=== PATIENT | male | born 1955 | race Caucasian/White ===

== ENCOUNTER 2017-09-23 13:28 | Observation (INO) | payer MEDICARE ==
[~2017-09-23] VITALS: Ht 180.3 cm; Wt 62.3 kg
[2017-09-23] MEDS ORDERED: LEVSOD150 PO (13:41)
[2017-09-23] MEDS ORDERED: CARV6.25 PO (13:42)
[2017-09-23] MEDS ORDERED: FENT50TP TOP (13:42)
[2017-09-23 14:27] LABS: BASOPHILS ABSOLUTE AUTO 0.02 K/mm3 (0.00-0.23); BASOPHILS PERCENT AUTO 0 % (0-2); EOSINOPHILS PERCENT AUTO 0 % (0-6); Hematocrit 48.2 % (37.0-53.0); IMMATURE GRAN ABSOLUTE AUTO 0.03 K/mm3 (0.00-0.10); IMMATURE GRAN PERCENT AUTO 0 % (0-1); LYMPHOCYTES ABSOLUTE AUTO 1.05 K/mm3 (0.84-5.20); LYMPHOCYTES PERCENT AUTO 14 % (21-46); MONOCYTES ABSOLUTE AUTO 0.27 K/mm3 (0.16-1.47); MONOCYTES PERCENT AUTO 4 % (4-13); Mean Corpuscular HGB 29.7 pg (26.0-34.0); Mean Corpuscular HGB Conc 33.2 g/dL (31.5-36.5); Mean Corpuscular Volume 89 fL (80-100); Mean Platelet Volume 9.6 fL (9.1-12.4); NEUTROPHILS ABSOLUTE AUTO 5.98 K/mm3 (1.96-9.15); NEUTROPHILS PERCENT AUTO 81 % (41-73); Platelet Count 376 K/mm3 (150-400); RDW Coefficient Variation 13.1 % (11.7-14.2); Red Blood Cell Count 5.39 M/mm3 (4.30-5.90); White Blood Cell Count 7.35 K/mm3 (4.00-11.30)
[2017-09-23 15:43] LABS: Alanine Aminotransfer (ALT/SGP 15 U/L (12-78); Albumin, Blood 3.7 g/dL (3.4-5.0); Alk Phos 77 U/L (50-136); Anion Gap 11 mmol/L (6-16); Aspartate Aminotrans (AST/SGOT 13 U/L (12-37); Bilirubin, Total 0.6 mg/dL (0.1-1.0); Blood Urea Nitrogen 29 mg/dL (8-24); Bun/Creatinine Ratio 34.7 (12.0-20.0); CO2, Blood 24 mmol/L (21-32); Calcium, Blood 9.3 mg/dL (8.5-10.1); Chloride, Blood 103 mmol/L (98-108); Creatinine, Blood 0.84 mg/dL (0.60-1.20); Globulin, Blood 3.6 g/dL (2.2-4.0); Glomerular Filtration Rate >60 (60-); Glucose, Blood 127 mg/dL (70-99); Potassium, Blood 4.5 mmol/L (3.5-5.5); Sodium, Blood 138 mmol/L (136-145); Total Protein, Blood 7.3 g/dL (6.4-8.2); Troponin I 0.015 ng/mL (0.000-0.040)
[2017-09-23 15:47] LABS: Thyroid Stimulating Hormone 0.012 uIU/mL (0.360-4.800)
[2017-09-23 15:53] LABS: Source, Urine Clean Catch
[2017-09-23 16:04] LABS: Appearance, Urine Clear (Clear); Bilirubin, Urine Neg (Neg); Blood, Urine 1+ (Neg); Color, Urine Yellow (P-Yellow); Glucose Qualitative, Urine Neg (Neg); Ketones, Urine 4+ (Neg); Leukocyte Esterase, Urine Neg (Neg); Nitrite, Urine Neg (Neg); Protein, Urine 2+ (Neg); Urobilinogen, Urine NORM (Normal)
[2017-09-23 16:13] LABS: Bacteria Rare /hpf; Red Blood Cells, Urine 0-2 /hpf (0-2); Squamous Epithelial Cells Not Seen /hpf (Few); White Blood Cells, Urine Not Seen /hpf (0-5)
[2017-09-23 16:20] LABS: U Amphetamine Screen Not Detected; U Barbituate Screen Not Detected; U Benzodiazapine Screen Not Detected; U Buprenorphine Screen Not Detected; U Cannabinoids Screen DETECTED; U Cocaine Screen Not Detected; U Methadone Screen Not Detected; U Methamphetamine Screen Not Detected; U Opiates Screen Not Detected; U Oxycodone Screen DETECTED; U Phencyclidine Screen Not Detected; U Propoxyphene Screen Not Detected
[2017-09-23 17:49] LABS: Free Thyroxine 1.93 ng/dL (0.70-1.60)
[2017-09-23 17:51] LABS: Triiodothyronine, Free 2.16 pg/mL (2.18-3.98)
[2017-09-23] MEDS ORDERED: DULO60 PO ×2 (22:01→22:02)
[2017-09-23] MEDS ORDERED: ABAT250V (22:01)
[2017-09-24 05:05] LABS: BASOPHILS ABSOLUTE AUTO 0.03 K/mm3 (0.00-0.23); BASOPHILS PERCENT AUTO 1 % (0-2); EOSINOPHILS ABSOLUTE AUTO 0.02 K/mm3 (0.00-0.68); EOSINOPHILS PERCENT AUTO 0 % (0-6); Hematocrit 40.2 % (37.0-53.0); Hemoglobin 13.6 g/dL (13.5-17.5); IMMATURE GRAN ABSOLUTE AUTO 0.02 K/mm3 (0.00-0.10); IMMATURE GRAN PERCENT AUTO 0 % (0-1); LYMPHOCYTES ABSOLUTE AUTO 3.14 K/mm3 (0.84-5.20); LYMPHOCYTES PERCENT AUTO 49 % (21-46); MONOCYTES PERCENT AUTO 9 % (4-13); Mean Corpuscular HGB 29.7 pg (26.0-34.0); Mean Corpuscular HGB Conc 33.8 g/dL (31.5-36.5); Mean Corpuscular Volume 88 fL (80-100); Mean Platelet Volume 9.8 fL (9.1-12.4); NEUTROPHILS ABSOLUTE AUTO 2.67 K/mm3 (1.96-9.15); NEUTROPHILS PERCENT AUTO 41 % (41-73); Platelet Count 306 K/mm3 (150-400); RDW Standard Deviation 41.5 fL (35.1-46.3); Red Blood Cell Count 4.58 M/mm3 (4.30-5.90); White Blood Cell Count 6.48 K/mm3 (4.00-11.30)
[2017-09-24 05:35] LABS: Anion Gap 7 mmol/L (6-16); Blood Urea Nitrogen 23 mg/dL (8-24); Bun/Creatinine Ratio 26.9 (12.0-20.0); CO2, Blood 30 mmol/L (21-32); Chloride, Blood 103 mmol/L (98-108); Creatinine, Blood 0.86 mg/dL (0.60-1.20); Glomerular Filtration Rate >60 (60-); Glucose, Blood 94 mg/dL (70-99); Potassium, Blood 3.9 mmol/L (3.5-5.5); Sodium, Blood 140 mmol/L (136-145)
[2017-09-25] MEDS ORDERED: ONDA4ODT MM (10:22)
[2017-09-25] MEDS ORDERED: PROC5 (13:21)
[2018-05-29] MEDS ORDERED: MIRT15 PO (20:36)
[2018-05-29] MEDS ORDERED: LEVSOD100 PO (20:36)
[2018-05-30] MEDS ORDERED: LISI5 PO (15:59)
== END 2017-09-25 16:08 | disposition home or self-care (01) ==
LOC: ER 13:28 → MEDS 13:29 → ENPENDDIS 09-25 08:30 → MEDS 09-25 16:08
PROVIDERS: Emergency Medicine; Internal Medicine
DX: R11.2 Nausea with vomiting, unspecified (principal); I10 Essential (primary) hypertension; E05.90 Thyrotoxicosis, unspecified without thyrotoxic crisis or storm; G20 Parkinson's disease; G89.29 Other chronic pain; M54.5 Low back pain; M32.9 Systemic lupus erythematosus, unspecified; E03.9 Hypothyroidism, unspecified; Z90.49 Acquired absence of other specified parts of digestive tract; Z98.890 Other specified postprocedural states
CPT/HCPCS: 36415; 71046; 74018; 80048; 80053; 81001; 83690; 83735; 84439; 84443; 84481; 84484; 85025; 93005; 93010; 96361; 96372; 96374; 96375; 96376; 99285; C9113; G0378; J0780; J1170; J1200; J1650; J1885; J2405; J2765; J3010; J7120

== ENCOUNTER 2018-03-04 09:50 | Emergency (ER) | payer MEDICARE ==
[~2018-03-04] VITALS: Ht 172.7 cm; Wt 65.8 kg
[~2018-03-04 09:50] MED LIST: ABAT250V; CARV6.25 PO; DULO60 PO; FENT50TP TOP; LEVSOD150 PO; ONDA4ODT MM; PROC5
[2018-03-04 10:38] LABS: BASOPHILS ABSOLUTE AUTO 0.04 K/mm3 (0.00-0.23); BASOPHILS PERCENT AUTO 1 % (0-2); EOSINOPHILS ABSOLUTE AUTO 0.02 K/mm3 (0.00-0.68); EOSINOPHILS PERCENT AUTO 0 % (0-6); Hematocrit 53.3 % (37.0-53.0); IMMATURE GRAN ABSOLUTE AUTO 0.02 K/mm3 (0.00-0.10); IMMATURE GRAN PERCENT AUTO 0 % (0-1); LYMPHOCYTES ABSOLUTE AUTO 1.98 K/mm3 (0.84-5.20); LYMPHOCYTES PERCENT AUTO 32 % (21-46); MONOCYTES ABSOLUTE AUTO 0.38 K/mm3 (0.16-1.47); MONOCYTES PERCENT AUTO 6 % (4-13); Mean Corpuscular HGB 31.1 pg (26.0-34.0); Mean Corpuscular HGB Conc 33.8 g/dL (31.5-36.5); Mean Corpuscular Volume 92 fL (80-100); NEUTROPHILS ABSOLUTE AUTO 3.68 K/mm3 (1.96-9.15); NEUTROPHILS PERCENT AUTO 60 % (41-73); Platelet Count 398 K/mm3 (150-400); RDW Coefficient Variation 14.6 % (11.7-14.2); RDW Standard Deviation 49.6 fL (35.1-46.3); Red Blood Cell Count 5.79 M/mm3 (4.30-5.90); White Blood Cell Count 6.12 K/mm3 (4.00-11.30)
[2018-03-04 10:56] LABS: Alanine Aminotransfer (ALT/SGP 39 U/L (12-78); Albumin, Blood 4.1 g/dL (3.4-5.0); Albumin/Globulin Ratio 1.1 (0.8-1.8); Alk Phos 95 U/L (50-136); Anion Gap 8 mmol/L (6-16); Aspartate Aminotrans (AST/SGOT 20 U/L (12-37); Bilirubin, Total 0.7 mg/dL (0.1-1.0); Blood Urea Nitrogen 23 mg/dL (8-24); Bun/Creatinine Ratio 23.7 (12.0-20.0); CO2, Blood 27 mmol/L (21-32); Calcium, Blood 9.2 mg/dL (8.5-10.1); Chloride, Blood 104 mmol/L (98-108); Creatinine, Blood 0.97 mg/dL (0.60-1.20); Globulin, Blood 3.8 g/dL (2.2-4.0); Glomerular Filtration Rate >60 (60-); Glucose, Blood 109 mg/dL (70-99); Potassium, Blood 3.8 mmol/L (3.5-5.5); Sodium, Blood 139 mmol/L (136-145); Total Protein, Blood 7.9 g/dL (6.4-8.2); Troponin I <0.015 ng/mL (0.000-0.040)
[2018-03-04 11:52] LABS: Source, Urine Clean Catch
[2018-03-04 12:01] LABS: Bilirubin, Urine Neg (Neg); Blood, Urine 1+ (Neg); Glucose Qualitative, Urine Neg (Neg); Ketones, Urine Neg (Neg); Leukocyte Esterase, Urine Neg (Neg); Nitrite, Urine Neg (Neg); Protein, Urine 2+ (Neg); Urobilinogen, Urine NORM (Normal)
[2018-03-04 12:30] LABS: Appearance, Urine Clear (Clear); Color, Urine Yellow (P-Yellow)
[2018-03-04 12:37] LABS: Bacteria Not Seen /hpf; Red Blood Cells, Urine Not Seen /hpf (0-2); Squamous Epithelial Cells Few /hpf (Few); White Blood Cells, Urine Not Seen /hpf (0-5)
== END 2018-03-04 13:17 | disposition home or self-care (01) ==
LOC: ER 09:50
PROVIDERS: Emergency Medicine
DX: R53.82 Chronic fatigue, unspecified (principal); R25.2 Cramp and spasm; F32.9 Major depressive disorder, single episode, unspecified; I10 Essential (primary) hypertension; Z79.899 Other long term (current) drug therapy
CPT/HCPCS: 36415; 71046; 80053; 81001; 83880; 84484; 85025; 93005; 93010; 99284-25

== ENCOUNTER 2019-02-26 08:19 | Observation (INO) | payer MEDICARE ==
[~2019-02-26] VITALS: Ht 180.3 cm; Wt 65.8 kg
[~2019-02-26 08:19] MED LIST changes: +LEVSOD100 PO; +LISI5 PO; +MIRT15 PO
[2019-02-26 09:03] LABS: BASOPHILS ABSOLUTE AUTO 0.04 K/mm3 (0.00-0.23); BASOPHILS PERCENT AUTO 1 % (0-2); EOSINOPHILS ABSOLUTE AUTO 0.04 K/mm3 (0.00-0.68); EOSINOPHILS PERCENT AUTO 1 % (0-6); Hematocrit 52.3 % (37.0-53.0); Hemoglobin 17.5 g/dL (13.5-17.5); IMMATURE GRAN ABSOLUTE AUTO 0.01 K/mm3 (0.00-0.10); IMMATURE GRAN PERCENT AUTO 0 % (0-1); LYMPHOCYTES ABSOLUTE AUTO 1.64 K/mm3 (0.84-5.20); LYMPHOCYTES PERCENT AUTO 30 % (21-46); MONOCYTES ABSOLUTE AUTO 0.38 K/mm3 (0.16-1.47); MONOCYTES PERCENT AUTO 7 % (4-13); Mean Corpuscular HGB 31.8 pg (26.0-34.0); Mean Corpuscular HGB Conc 33.5 g/dL (31.5-36.5); Mean Corpuscular Volume 95 fL (80-100); Mean Platelet Volume 9.2 fL (9.1-12.4); NEUTROPHILS ABSOLUTE AUTO 3.38 K/mm3 (1.96-9.15); NEUTROPHILS PERCENT AUTO 62 % (41-73); Platelet Count 291 K/mm3 (150-400); RDW Coefficient Variation 13.3 % (11.7-14.2); RDW Standard Deviation 47.5 fL (35.1-46.3); White Blood Cell Count 5.49 K/mm3 (4.00-11.30)
[2019-02-26 09:28] LABS: Ethanol (Alcohol), Blood, Med <3 mg/dL; Salicylate 3.2 mg/dL (2.8-20.0)
[2019-02-26 09:31] LABS: U Amphetamine Screen Not Detected; U Barbituate Screen Not Detected; U Benzodiazapine Screen Not Detected; U Buprenorphine Screen Not Detected; U Cannabinoids Screen DETECTED; U Cocaine Screen Not Detected; U Methadone Screen Not Detected; U Methamphetamine Screen Not Detected; U Opiates Screen Not Detected; U Oxycodone Screen Not Detected; U Phencyclidine Screen Not Detected; U Propoxyphene Screen Not Detected
[2019-02-26 09:36] LABS: Alanine Aminotransfer (ALT/SGP 23 U/L (12-78); Albumin, Blood 4.2 g/dL (3.4-5.0); Albumin/Globulin Ratio 1.2 (0.8-1.8); Alk Phos 61 U/L (50-136); Anion Gap 10 mmol/L (6-16); Aspartate Aminotrans (AST/SGOT 15 U/L (12-37); Bilirubin, Total 0.8 mg/dL (0.1-1.0); Blood Urea Nitrogen 24 mg/dL (8-24); Bun/Creatinine Ratio 26.8 (12.0-20.0); CO2, Blood 25 mmol/L (21-32); Calcium, Blood 9.4 mg/dL (8.5-10.1); Chloride, Blood 105 mmol/L (98-108); Globulin, Blood 3.6 g/dL (2.2-4.0); Glomerular Filtration Rate >60 (60-); Glucose, Blood 113 mg/dL (70-99); Potassium, Blood 4.1 mmol/L (3.5-5.5); Sodium, Blood 140 mmol/L (136-145); Total Protein, Blood 7.8 g/dL (6.4-8.2)
[2019-02-26 09:37] LABS: Acetaminophen, Random <2.0 ug/mL (10.0-30.0)
[2019-02-26] MEDS ORDERED: TRAZ100 (12:01)
[2019-02-26] MEDS ORDERED: Fentanyl1 EAC1 TD (12:01)
[2019-02-26] MEDS ORDERED: OXYC10TA19 PO (12:01)
[2019-03-01] MEDS ORDERED: Seroquel Xr50 MG PO (12:16)
[2019-03-01] MEDS ORDERED: BUPR75 PO (14:00)
== END 2019-03-01 14:07 | disposition home or self-care (01) ==
LOC: ER 08:19 → EOR 08:20
PROVIDERS: ADMIT Emergency Medicine
DX: F32.9 Major depressive disorder, single episode, unspecified (principal); Z79.899 Other long term (current) drug therapy
CPT/HCPCS: 36415; 80053; 84443; 85025; 99285; A9270; G0378; G0480; J3486

== ENCOUNTER 2020-04-25 07:54 | Observation (INO) | payer MEDICARE ==
[~2020-04-25] VITALS: Ht 180.3 cm; Wt 75.9 kg
[~2020-04-25 07:54] MED LIST changes: +BUPR75 PO; +EUTHYROX125 MCG PO; +Fentanyl1 EAC1 TD; -LEVSOD100 PO; +OXYC10TA19 PO; +Seroquel Xr50 MG PO; +TRAZ100
[2020-04-25 08:15] LABS: BASOPHILS ABSOLUTE AUTO 0.05 K/mm3 (0.00-0.23); BASOPHILS PERCENT AUTO 1 % (0-2); EOSINOPHILS ABSOLUTE AUTO 0.08 K/mm3 (0.00-0.68); EOSINOPHILS PERCENT AUTO 1 % (0-6); Hematocrit 42.4 % (37.0-53.0); Hemoglobin 14.1 g/dL (13.5-17.5); IMMATURE GRAN ABSOLUTE AUTO 0.04 K/mm3 (0.00-0.10); IMMATURE GRAN PERCENT AUTO 1 % (0-1); LYMPHOCYTES ABSOLUTE AUTO 1.52 K/mm3 (0.84-5.20); LYMPHOCYTES PERCENT AUTO 23 % (21-46); MONOCYTES ABSOLUTE AUTO 0.52 K/mm3 (0.16-1.47); MONOCYTES PERCENT AUTO 8 % (4-13); Mean Corpuscular HGB 31.2 pg (26.0-34.0); Mean Corpuscular HGB Conc 33.3 g/dL (31.5-36.5); Mean Corpuscular Volume 94 fL (80-100); Mean Platelet Volume 9.3 fL (9.1-12.4); NEUTROPHILS ABSOLUTE AUTO 4.45 K/mm3 (1.96-9.15); NEUTROPHILS PERCENT AUTO 67 % (41-73); Platelet Count 309 K/mm3 (150-400); RDW Coefficient Variation 13.5 % (11.7-14.2); RDW Standard Deviation 45.8 fL (35.1-46.3); Red Blood Cell Count 4.52 M/mm3 (4.30-5.90); White Blood Cell Count 6.66 K/mm3 (4.00-11.30)
[2020-04-25 08:40] LABS: Alanine Aminotransfer (ALT/SGP 29 U/L (12-78); Albumin, Blood 3.7 g/dL (3.4-5.0); Albumin/Globulin Ratio 1.1 (0.8-1.8); Alk Phos 61 U/L (50-136); Anion Gap 7 mmol/L (6-16); Aspartate Aminotrans (AST/SGOT 19 U/L (12-37); Bilirubin, Total 0.6 mg/dL (0.1-1.0); Blood Urea Nitrogen 27 mg/dL (8-24); Bun/Creatinine Ratio 25.5 (12.0-20.0); CO2, Blood 24 mmol/L (21-32); Calcium, Blood 8.7 mg/dL (8.5-10.1); Chloride, Blood 109 mmol/L (98-108); Creatinine, Blood 1.06 mg/dL (0.60-1.20); Globulin, Blood 3.4 g/dL (2.2-4.0); Glomerular Filtration Rate >60 (60-); Glucose, Blood 114 mg/dL (70-99); Sodium, Blood 140 mmol/L (136-145); Total Protein, Blood 7.1 g/dL (6.4-8.2); Troponin I <0.015 ng/mL (0.000-0.040)
[2020-04-25 09:02] LABS: Source, Urine Voided
[2020-04-25 09:08] LABS: Bilirubin, Urine Neg (Neg); Blood, Urine 1+ (Neg); Glucose Qualitative, Urine Neg (Neg); Ketones, Urine Neg (Neg); Leukocyte Esterase, Urine Neg (Neg); Nitrite, Urine Neg (Neg); Protein, Urine Neg (Neg); Urobilinogen, Urine NORM (Normal)
[2020-04-25 09:24] LABS: Appearance, Urine Clear (Clear); Color, Urine Yellow (P-Yellow)
[2020-04-25 09:25] LABS: Bacteria Not Seen /hpf; Squamous Epithelial Cells Not Seen /hpf (Few); White Blood Cells, Urine Not Seen /hpf (0-5); Yeast/Fungi Urine Not Seen /hpf
[2020-04-25] MEDS ORDERED: ACET325 PO (15:57)
[2020-04-25] MEDS ORDERED: IBUP200 PO (15:57)
[2020-04-25] MEDS ORDERED: TRIDERM28.4 GM TOP (18:09)
[2020-04-25] MEDS ORDERED: BUPR100 PO (18:09)
[2020-04-25] MEDS ORDERED: DESVENLAFAXINE50 M3 PO (18:10)
[2020-04-25] MEDS ORDERED: QUETIAPINE FUMA50 M1 PO (18:11)
--- NOTE | 2020-04-25 18:27 | NUR ---
SHIFT SUMMARY. 1227 ER ADMISSION FOR CP. PT REPORTED PRESSURE TYPE MIDSTERNAL PAIN 09/20 AT TIME OF ADMISSION, PT DENIED RADIATING TO ARM OR JAW. PT REPORTED CP PRIOR TO ADMISSION 01/20. PT ALSO REPORTED PAIN TO L SHOULDER THAT IS CHRONIC 09/20, WHICH PT REQUESTED IBUPROFEN AND APAP. AT TIME OF ADMINISTION OF APAP AND IBUPROFEN PT REPORTED THAT CP SPONTANEOUSLY STOPPED, PT REPORTED L SHOULDER PAIN IMPROVED WITH ABOVE MEDICATIONS. PT DENIES N/V SINCE ADMISSION, PT DID REPORT NAUSEA AT 0500 THIS AM WHEN HE EXPERIENCED CP AT HOME. GOOD MEAL INTAKE. PT DENIES SOB, LUNGS CLEAR. NO OTHER CHANGES OR CONCERNS.
--- NOTE | 2020-04-25 23:51 | NUR ---
HAS BEEN RESTING QUIETLY WITHOUT VOICED COMPLAINTS. WAS AWAKENED FOR ASSESSMENT, DENIED CHEST PAIN, BUT VOICED SOME SHOULDER PAIN FOR WHICH HE RECEIVED TYLENOL (SHICH HE SAID HE TAKES FOR IT AT HOME). CURRENTLY RESTING QUIETLY WITH CALL LIGHT IN REACH.
--- NOTE | 2020-04-26 02:54 | NUR ---
SHIFT SUMMARY HAS BEEN RESTING QUIETLY WITH FEW INTERRUPTIONS THIS SHIFT. VSS. HAS DENIED CHEST PAIN EACH TIME DURING ROUNDING. CALL LIGHT IN REACH. NO NOTED S/S ACUTE DISTRESS. WILL CONTINUE TO MONITOR.
--- NOTE | 2020-04-26 10:03 | NUR ---
PHYSICIAN NOTIFIED THIS RN CALLED DR. ANDERSON ABOUT PT VOMITING AT APPROXIMATELY 0920 AND OBTAINED ORDERS FOR ZOFRAN PER EMAR. PT DENIED CHEST PAIN AT 0920. AT APPROXIMATELY [id number], PT C/O CHEST PAIN, NOT RADIATING. THIS RN OBTAINED PT VITALS AND DISCUSSED CP WITH DR. GARZA IN ROOM. ORDERS OBTAINED FOR EKG STAT, EKG PRN CHEST PAIN, AND SL NITROGLYCERIN.
--- NOTE | 2020-04-26 18:25 | NUR ---
SHIFT SUMMARY PT IS AOX4. PT HAD ONE EPISODE OF CHEST PAIN AND VOMITING THIS AM AT APPROXIMATELY 0940. SEE "PHYSICIAN NOTIFIED" NOTE. AFTER SL NITRO AND IV ZOFRAN, PT DENIED N/V AND CP FOR THIS SHIFT. EKG DONE AT TIME OF CHEST PAIN THIS AM. PRESENT IN ROOM THROUGHOUT DAY. PT IS UNDERGOING A STRESS TEST TOMORROW MORNING. TELE RUNNING SINUS AT 71. PT IS IN BED, CALL LIGHT IN REACH.
--- NOTE | 2020-04-27 04:48 | NUR ---
CHEST PAIN PT REPORTED CP W/NAUSEA 0450, MEDICATED W/ZOFRAN & NITRO @0455- TELE REPORT SR IN 65 EKG COMPLETED AND IN FRONT OF CHART (NSR 70), TYLENOL ADMIN, PT REPORTS PAIN "PRESSURE" & NAUSEA RELIEVED BY 0510.
--- NOTE | 2020-04-27 05:22 | NUR ---
SHIFT SUMMARY NO C/O ANY KIND T/O SHIFT UNTIL 0450 -EPISODE OF CHEST PAIN W/NAUSEA, PT REPORTS RAPID ONSET OF "PRESSURE", READ PREVIOUS NOTE (CHEST PAIN), PT RESTING COMFORTABLY BY 0520. NO OTHER C/O ANY KIND, PT NPO SINCE MIDNIGHT EXCEPT FOR PO MEDS @ 0500 W/SIP OF WATER, PT RESTING AT THIS TIME, CALL LIGHT IN REACH, WILL CONT TO MONITOR UNTIL REPORT GIVEN TO DAY RN.
[2020-04-27 13:18] LABS: Source, Urine Clean Catch
[2020-04-27 13:31] LABS: Bilirubin, Urine Neg (Neg); Blood, Urine 1+ (Neg); Glucose Qualitative, Urine Neg (Neg); Ketones, Urine Neg (Neg); Leukocyte Esterase, Urine Neg (Neg); Nitrite, Urine Neg (Neg); Protein, Urine Neg (Neg); Urobilinogen, Urine NORM (Normal)
[2020-04-27 13:51] LABS: Appearance, Urine Clear (Clear); Color, Urine Yellow (P-Yellow)
[2020-04-27 13:52] LABS: Bacteria Few /hpf; Red Blood Cells, Urine 0-2 /hpf (0-2); Squamous Epithelial Cells Not Seen /hpf (Few); White Blood Cells, Urine Not Seen /hpf (0-5)
--- NOTE | 2020-04-27 17:23 | NUR ---
SHIFT SUMMARY PT IS AOX4. PT C/O LEFT SHOULDER PAIN, BUT DENIES N/V, SOB, CP THIS SHIFT. PT STRESS TEST COMPLETE, RESULTS PENDING. IN ROOM THROUGHOUT SHIFT. PT INDEPENDENT IN ROOM. PT CURRENTLY IN BED, CALL LIGHT IN REACH, TELE ON PT.
[2020-04-27] MEDS ORDERED: OMEP20ER PO (18:30)
--- NOTE | 2020-04-27 19:13 | NUR ---
DISCHARGE NOTE DC INSTRUCTIONS REVIEWED WITH PT BY NON PROFIT DIRECTOR. PT DRESSED IN ROOM AND IV REMOVED. BELONGINGS WITH PT. PT IS INDEPENDENT AND LEFT IN PRIVATE VEHICLE. PT WALKED OFF THE UNIT AT 1914.
== END 2020-04-27 19:12 | disposition home or self-care (01) ==
LOC: ER 07:54 → MEDS 07:55 → ERHOLD 07:55 → MEDS 12:31
PROVIDERS: Emergency Medicine; Student in an Organized Health Care Education/Training Program; ADMIT Internal Medicine
DX: I24.9 Acute ischemic heart disease, unspecified (principal); R11.2 Nausea with vomiting, unspecified; N40.1 Benign prostatic hyperplasia with lower urinary tract symptoms; R35.0 Frequency of micturition; E06.3 Autoimmune thyroiditis; I10 Essential (primary) hypertension; E03.9 Hypothyroidism, unspecified; M32.9 Systemic lupus erythematosus, unspecified; G89.29 Other chronic pain; M54.5 Low back pain; F33.9 Major depressive disorder, recurrent, unspecified; G20 Parkinson's disease; Z90.49 Acquired absence of other specified parts of digestive tract; Z79.899 Other long term (current) drug therapy; Z23 Encounter for immunization
CPT/HCPCS: 36415; 71045; 78452; 80053; 81001; 83880; 84484; 85025; 93005; 93010; 93017; 96372; 96374; 96376; 99285-25; A9270; A9500; G0008; G0378; J0706; J1650; J2405; J2785; Q2038

== ENCOUNTER 2023-07-02 22:31 | Observation (INO) | payer OTHER ==
[~2023-07-02] VITALS: Ht 180.3 cm; Wt 72.0 kg
[~2023-07-02 22:31] MED LIST changes: +ACET500 PO; +BUPR100 PO; +DESVENLAFAXINE50 M3 PO; -EUTHYROX125 MCG PO; +IBUP200 PO; +LEVSOD137 PO; +OMEP20ER PO; +QUETIAPINE FUMA50 M1 PO; +TRIDERM28.4 GM TOP
[2023-07-02 23:33] LABS: BASOPHILS ABSOLUTE AUTO 0.04 K/mm3 (0.00-0.23); BASOPHILS PERCENT AUTO 1 % (0-2); EOSINOPHILS ABSOLUTE AUTO 0.08 K/mm3 (0.00-0.68); EOSINOPHILS PERCENT AUTO 1 % (0-6); Hematocrit 33.3 % (37.0-53.0); IMMATURE GRAN ABSOLUTE AUTO 0.05 K/mm3 (0.00-0.10); IMMATURE GRAN PERCENT AUTO 1 % (0-1); LYMPHOCYTES ABSOLUTE AUTO 1.18 K/mm3 (0.84-5.20); LYMPHOCYTES PERCENT AUTO 15 % (21-46); MONOCYTES ABSOLUTE AUTO 0.88 K/mm3 (0.16-1.47); MONOCYTES PERCENT AUTO 11 % (4-13); Mean Corpuscular HGB 30.5 pg (26.0-34.0); Mean Corpuscular Volume 92 fL (80-100); Mean Platelet Volume 8.8 fL (9.1-12.4); NEUTROPHILS ABSOLUTE AUTO 5.73 K/mm3 (1.96-9.15); NEUTROPHILS PERCENT AUTO 72 % (41-73); Platelet Count 379 K/mm3 (150-400); RDW Coefficient Variation 16.8 % (11.7-14.2); RDW Standard Deviation 55.2 fL (35.1-46.3); Red Blood Cell Count 3.61 M/mm3 (4.30-5.90); White Blood Cell Count 7.96 K/mm3 (4.00-11.30)
[2023-07-03 00:01] LABS: Albumin, Blood 3.4 g/dL (3.4-5.0); Albumin/Globulin Ratio 0.9 (0.8-1.8); Bilirubin, Total 1.7 mg/dL (0.1-1.0); Bun/Creatinine Ratio 31.4 (12.0-20.0); Calcium, Blood 9.3 mg/dL (8.5-10.1); Creatinine, Blood 1.02 mg/dL (0.60-1.20); Globulin, Blood 3.8 g/dL (2.2-4.0); Potassium, Blood 4.5 mmol/L (3.5-5.5); Total Protein, Blood 7.2 g/dL (6.4-8.2)
[2023-07-03 01:57] LABS: Source, Urine Foley catheter
[2023-07-03 02:04] LABS: Bilirubin, Urine Neg (Neg); Blood, Urine 5+ (Neg); Glucose Qualitative, Urine Neg (Neg); Ketones, Urine 3+ (Neg); Leukocyte Esterase, Urine 2+ (Neg); Nitrite, Urine Neg (Neg); Protein, Urine 2+ (Neg); Specific Gravity, Urine 1.015 (1.003-1.022); Urobilinogen, Urine 1+ (Normal)
[2023-07-03 02:06] LABS: BASOPHILS ABSOLUTE AUTO 0.03 K/mm3 (0.00-0.23); BASOPHILS PERCENT AUTO 0 % (0-2); EOSINOPHILS ABSOLUTE AUTO 0.04 K/mm3 (0.00-0.68); EOSINOPHILS PERCENT AUTO 1 % (0-6); Hematocrit 30.4 % (37.0-53.0); Hemoglobin 10.1 g/dL (13.5-17.5); IMMATURE GRAN ABSOLUTE AUTO 0.06 K/mm3 (0.00-0.10); IMMATURE GRAN PERCENT AUTO 1 % (0-1); LYMPHOCYTES ABSOLUTE AUTO 0.81 K/mm3 (0.84-5.20); LYMPHOCYTES PERCENT AUTO 10 % (21-46); MONOCYTES ABSOLUTE AUTO 0.79 K/mm3 (0.16-1.47); MONOCYTES PERCENT AUTO 10 % (4-13); Mean Corpuscular HGB 30.3 pg (26.0-34.0); Mean Corpuscular HGB Conc 33.2 g/dL (31.5-36.5); Mean Corpuscular Volume 91 fL (80-100); Mean Platelet Volume 9.2 fL (9.1-12.4); NEUTROPHILS ABSOLUTE AUTO 6.61 K/mm3 (1.96-9.15); NEUTROPHILS PERCENT AUTO 79 % (41-73); Platelet Count 351 K/mm3 (150-400); RDW Coefficient Variation 16.6 % (11.7-14.2); RDW Standard Deviation 53.8 fL (35.1-46.3); Red Blood Cell Count 3.33 M/mm3 (4.30-5.90); White Blood Cell Count 8.34 K/mm3 (4.00-11.30)
[2023-07-03 02:07] LABS: Bun/Creatinine Ratio 24.4 (12.0-20.0); Calcium, Blood 8.1 mg/dL (8.5-10.1); Creatinine, Blood 1.31 mg/dL (0.60-1.20); Potassium, Blood 3.9 mmol/L (3.5-5.5)
[2023-07-03 02:32] LABS: Appearance, Urine Hazy (Clear); Color, Urine Amber (P-Yellow)
[2023-07-03 02:33] LABS: Bacteria Few /hpf; Red Blood Cells, Urine 50-100 /hpf (0-2); Squamous Epithelial Cells Not Seen /hpf (Few); White Blood Cells, Urine 0-2 /hpf (0-5)
[2023-07-03 03:35] VITALS: BP 125/75
--- NOTE | 2023-07-03 04:40 | NUR ---
TRANSFER NOTE/SHIFT SUMMARY THIS RN RECEIVED REPORT FROM FILIBERTO ACOSTA IN THE ED. PT TRANSFERRED TO PCU 3 VIA [facility]. PT WAS ABLE TO AMBULATE FROM [facility] TO BED INDEPENDENTLY. MILD DISCOMFORT REPORTED WITH MOVEMENT. WHILE PT LYING STILL, PT DENIED PAIN. ABDOMEN TENDER TO TOUCH. BS+. BP STABLE. NO TELE, HRR REG 90'S. PPP. TEMP OF 99.0. PT A&O X4. ABLE TO MAKE NEEDS KNOWN. AT BEDSIDE FOR ADMISSION QUESTIONS. STATED THAT SHE WILL BRING IN MEDICATIONS FOR MED REC IN THE MORNING OF 07/03. PT EDUCATED ON NPO STATUS. GIVEN ORAL SWABS TO ASSIST WITH DRY MOUTH. NS INFUSING PER EMAR. BED IN LOWEST POSITION AND CALL LIGHT WITHIN REACH. THIS RN WILL REPORT TO ONCOMING DAYSHIFT RN.
[2023-07-03 05:54] LABS: BASOPHILS ABSOLUTE AUTO 0.03 K/mm3 (0.00-0.23); BASOPHILS PERCENT AUTO 0 % (0-2); EOSINOPHILS ABSOLUTE AUTO 0.01 K/mm3 (0.00-0.68); EOSINOPHILS PERCENT AUTO 0 % (0-6); Hematocrit 27.9 % (37.0-53.0); Hemoglobin 9.2 g/dL (13.5-17.5); IMMATURE GRAN ABSOLUTE AUTO 0.04 K/mm3 (0.00-0.10); IMMATURE GRAN PERCENT AUTO 1 % (0-1); LYMPHOCYTES ABSOLUTE AUTO 0.73 K/mm3 (0.84-5.20); LYMPHOCYTES PERCENT AUTO 10 % (21-46); MONOCYTES ABSOLUTE AUTO 0.85 K/mm3 (0.16-1.47); MONOCYTES PERCENT AUTO 12 % (4-13); Mean Corpuscular HGB 30.5 pg (26.0-34.0); Mean Corpuscular Volume 92 fL (80-100); Mean Platelet Volume 9.1 fL (9.1-12.4); NEUTROPHILS ABSOLUTE AUTO 5.64 K/mm3 (1.96-9.15); NEUTROPHILS PERCENT AUTO 77 % (41-73); Platelet Count 345 K/mm3 (150-400); RDW Standard Deviation 56.1 fL (35.1-46.3); Red Blood Cell Count 3.02 M/mm3 (4.30-5.90)
[2023-07-03 06:22] LABS: Albumin, Blood 2.9 g/dL (3.4-5.0); Bilirubin, Total 1.1 mg/dL (0.1-1.0); Bun/Creatinine Ratio 25.9 (12.0-20.0); Calcium, Blood 7.9 mg/dL (8.5-10.1); Creatinine, Blood 1.16 mg/dL (0.60-1.20); Potassium, Blood 4.2 mmol/L (3.5-5.5); Total Protein, Blood 5.9 g/dL (6.4-8.2)
[2023-07-03 08:40] VITALS: BP 120/74
--- NOTE | 2023-07-03 10:24 | NUR ---
care assumption this rn assumed care at 0700. vital signs stable. medical status no tele. patient is alert and oriented x4. perrla. patient is independent, just calls for us to unplug his iv pump. patient is able to make his needs known and calls appropriately. patient reports abd lower pain, rated at a 7 this morning on a scale of 0-10, with 10 being the worst pain. patient received pain medications and warm blankets. upon reassesment patient pain had decreased to a 5. patient reports no chest pain/pressure or shortness of breath. see shift assessment for further detials. plan of care is up to date at this time.
--- NOTE | 2023-07-03 11:06 | NUR ---
Pt. is awake in bed and welcomes my visit. Pt. is pleasant. Facilitated a lengthy life review. Listened with empathy and Interest. Pt. displays evidence of a hopeful outlook. Considered matters of grayson and belief. Prayed with Pt. Pt. verbalized gratitude for the spiritual care visit.
[2023-07-03 15:09] VITALS: BP 149/89
--- NOTE | 2023-07-03 15:34 | NUR ---
TRANSFER OF CARE/ SHIFT SUMMARY this rn gave report to little rn on medical floor. patient moving to room 305. in room with patient and updated. patient left with all belongings. this rn called md morris to inform patient of increased pain around 1450, md placed new orders. this rn informed little rn of this increase in pain. otherwise no changes this shift. boswell is draining with gravity yellow coloration. plan of care up to date.
--- NOTE | 2023-07-03 18:32 | NUR ---
SHIFT SUMMARY PATIENT TRANSFERED FROM PCU THIS AFTERNOON. PATIENT IN EXTREME PAIN ON ARRIVAL TO MEDICAL FLOOR. PATIENT TENSE AND DISCRIBES PAIN A CONSTANT PAIN WITH A SHARP GRABBING SENSATION. PATIENT GUARDING AND ANXIOUS. CATHETER FLUSHED WITH NO RESISTANCE OR CHANGE IN PAIN. SPOKE WITH DR MEANS RELATED TO CONTINUED PAIN. ORDER GIVEN FOR TORADOL AND ATIVAN. PAIN REDUCED GREATLY AFTER TORADOL AND PATIENT ABLE TO RELAX AFTER ATIVAN. PROVIDED EDUCATION RELATED TO PAIN MANAGEMENT. AT BEDSIDE DURING EDUCATION.
[2023-07-03 19:07] VITALS: BP 132/82
[2023-07-03] MEDS ORDERED: TAMSULOSIN HCL0.4 M1 PO (23:45)
[2023-07-03] MEDS ORDERED: LOSARTAN POTASS25 M2 PO (23:46)
[2023-07-03] MEDS ORDERED: DULOXETINE HCL60 M1 PO (23:47)
[2023-07-03] MEDS ORDERED: BUPR100 PO (23:48)
[2023-07-03] MEDS ORDERED: OXYC5 PO (23:49)
--- NOTE | 2023-07-04 05:13 | NUR ---
SHIFT SUMMARY NOC PT A/O X 4. PLEASANT AND COOPERATIVE WITH CARE. PT HAS INTRACTABLE LOWER ABD ABOVE PUBIC BONE FROM PROSTATE RESECTION 06/27/23. PT PAIN SO FAR HAS BEEN MANAGED WITH X 2 OF DILAUDID AND PT HAS BEEN RESTING COMFORTABLY. PT ALSO HAS TORADOL AND ATIVAN FOR PAIN AND AXIETY. PT HAS 5 INCISIONS MID ABD THAT HAVE SURGICAL GLUE COVERING THEM. PT HAS SEVERE BRUISING ON BILATERAL FLANKS FROM PROCEDURE. PT IS POSSIBLE DISCHARGE TODAY WITH FOLLOW UP WITH UROLOGIST. PT ON CONTINOUS BIOX TO MONITOR SPO2 DUE TO PAIN RX MANAGEMENT. PT IS CURRENTLY RESTING WITH BED IN LOWEST POSITION, AND CALL LIGHT WITHIN REACH.
[2023-07-04 05:32] VITALS: BP 137/92
[2023-07-04 07:43] VITALS: BP 148/90
[2023-07-04] MEDS ORDERED: HYDMOR4 PO (12:05)
[2023-07-04] MEDS ORDERED: SENNA LAXATIVE8.6 MG PO (12:06)
--- NOTE | 2023-07-04 18:00 | NUR ---
SHIFT SUMMARY PATIENT PLANNED TO DISCHARGE TODAY. PATIENT ALERT AND INTERACTIVE AT START OF SHIFT AND REPORTING PAIN WELL CONTROLLED AND EAGER TO GO HOME. CATHETER DC'D. PATIENT UP TO BATHROOM TO HAVE A BM THEN PAIN OUT OF CONTROL. PATIENT YELLING OUT, TREMULOUS, HYPERVENTILATING. DR LANG NOTIFIED OF CHANGES, CONCERNS OF PAIN CONTROL AND POSSIBLE WITHDRAWL SYMPTOMS. DISCHARGE PLACED ON HOLD. DR MEANS SPOKE WITH PATIENT AND RESTARTED CYMBALTA. PLAN TO RE EVALUATE DISCHARGE TOMORROW. PATIENT CONTINUES TO HAVE EPISODES OF PAIN ESPECIALLY WHEN FEELING LIKE HAVING A BM. PATIENT HAS NOT URINATED SINCE CATHETER REMOVED. PATIENT DENIES ANY URGE TO URINATE AT THIS TIME.
--- NOTE | 2023-07-04 19:58 | NUR ---
PT RESTING QUIETLY, EYES CLOSED, RESP E/U ON RA. CALL LT IN REACH.
[2023-07-04 20:14] VITALS: BP 137/83
--- NOTE | 2023-07-04 21:27 | NUR ---
PT IS TRYING TO VOID USING URINAL. PER DAYSHIFT KARLA PIKE WAS TAKEN OUT AT 1030 AM. PT STATES HE HAS PEED A LITTLE. WITH CONTINUE TO ASSESS. MEDICATED PT WITH TORADOL. NO OTHER NEEDS. WILL CONTINUE TO PROVIDE CARE. CALL LT IN REACH.
--- NOTE | 2023-07-05 00:28 | NUR ---
PT UP TO THE BATHROOM INDEPENDENTLY TO TRY AND VOID. PT TO LET STAFF KNOW AFTER HE VOIDS.
[2023-07-05 04:50] VITALS: BP 111/74
[2023-07-05 07:08] VITALS: BP 127/80
--- NOTE | 2023-07-05 08:05 | NUR ---
SHIFT SUMMARY: A/O. STATES NEEDS APPROPRIATELY. ON RA. INDEPENDENT IN RM. MEDICATED T/O NIGHT FOR ABD PAIN. PT RESTED WELL. PT VOIDED A SCANT AMOUNT OF URINE DURING SHIFT. PIKE WAS DC'D EARLIER IN DAY. BLADDER SCANNED PT, 130. ENCOURAGED PT TO TRY AND VOID. PT HAD BEEN UP TO BATHROOM A FEW TIMES. STATES HE WASN'T ABLE TO VOID AT THAT TIME. NO COMPLAINTS OF BLADDER PAIN. PT IS SALINE LOCKED. WILL CONTINUE TO PROVIDE UNTIL SHIFT REPORT. CALL LT IN REACH.
[2023-07-05 10:37] LABS: Bun/Creatinine Ratio 15.1 (12.0-20.0); Calcium, Blood 8.5 mg/dL (8.5-10.1); Creatinine, Blood 3.05 mg/dL (0.60-1.20); Potassium, Blood 4.2 mmol/L (3.5-5.5)
[2023-07-05 16:34] VITALS: BP 126/78
--- NOTE | 2023-07-05 17:41 | NUR ---
NOTE PT ALERT. PIKE PLACED PER ODRE D/T DECREASING KIDNEY FUNTION. PT TOLERATED WELL. EMPTIED 600ML OF ORANGE URINE. NO ODOR NOTED. PT PAIN HAS DECREASED THIS AFTERNOON. LR INFUSING AT 125ML/HR. MEDICATED FOR CRAMPYING ABD PASIN X2. ATIVAN X1. CARE ONGOING.
[2023-07-05 21:12] VITALS: BP 129/86
[2023-07-06 05:16] LABS: Albumin, Blood 2.4 g/dL (3.4-5.0); Anion Gap 4 mmol/L (6-16); Blood Urea Nitrogen 27 mg/dL (8-24); Bun/Creatinine Ratio 23.7 (12.0-20.0); CO2, Blood 26 mmol/L (21-32); Calcium, Blood 8.3 mg/dL (8.5-10.1); Chloride, Blood 108 mmol/L (98-108); Creatinine, Blood 1.14 mg/dL (0.60-1.20); Glomerular Filtration Rate 70 (60-); Glucose, Blood 104 mg/dL (70-99); Iron Serum 14 ug/dL (65-175); Percent Saturation 5.5 % (20.0-50.0); Phosphorus, Blood 2.6 mg/dL (2.5-4.9); Sodium, Blood 138 mmol/L (136-145); Total Iron Binding Capacity 254 ug/dL (250-450)
[2023-07-06 05:26] VITALS: BP 106/75
--- NOTE | 2023-07-06 06:45 | NUR ---
SHIFT SUMMARY NOC PT A/O X 4. PLEASANT AND COOPERATIVE WITH CARE. PT POST OP ABD PAIN BEING MANAGED PER EMAR. PT HAS BAG 3/4 OF LR @ 125 ML/HR INFUSING TO IMPROVE RENAL FUNCTION, AWAITING AM LABS FOR IMPROVEMENT. PT HAS PIKE IN PLACE DRAININ TO GRAVITY DARK YELLOW URINE. PT ABD INCISION SITES FREE OF S/S OF INFECTION. PT CURRENTLY RESTING WITH BED IN LOWEST POSITION, AND CALL LIGHT WITHIN REACH.
[2023-07-06 07:36] VITALS: BP 114/69
--- NOTE | 2023-07-06 10:05 | NUR ---
INFED TEST TEST DOSE COMPLETE. TOLERATING WELL. NO S/S OF REACTION. CARE ONGOING.
--- NOTE | 2023-07-06 13:14 | NUR ---
PIKE PT/ REFUSING TO HAVE PIKE REMOVED. THEY WILL COORDINATE WITH DR ARAGON PCP TO HAVE IT REMOVED. CARE ONGOING.
--- NOTE | 2023-07-06 13:15 | NUR ---
IRON PT HAS TOERATED IRON INFUSION. NO S/S OF ANAPYLAXIS NOTED. CARE ONGOING.
[2023-07-06 14:24] VITALS: BP 119/67
--- NOTE | 2023-07-06 14:27 | NUR ---
ELEVATED TEMP REPORTED TO DR MEANS PT ELEVATED TEMPERATURE. NO ORDER. CARE ON GOING.
[2023-07-06] MEDS ORDERED: QUET100 PO (14:47)
[2023-07-06] MEDS ORDERED: DULO60 PO (14:47)
[2023-07-06] MEDS ORDERED: Seroquel Xr50 MG PO (14:48)
[2023-07-06] MEDS ORDERED: HYDMOR2 PO ×2 (14:49→14:52)
--- NOTE | 2023-07-06 15:35 | NUR ---
DISCHARGE IV REMOVED. PERSCRIPTIONS FAXED TO [employer]. PT ESCORTED OUT TO AWAITING CAR VIA W/C. PRINTED MATERIAL FOR PIKE CARE AND REVIEWED CARE WITH PT/SPOUCE. CARE ONGOING.
== END 2023-07-06 16:50 | disposition home or self-care (01) ==
LOC: ER 22:31 → MEDS 22:32 → PCU 22:32 → MEDS 07-03 15:43 → ENPENDDIS 07-04 10:15 → MEDS 07-06 16:50
PROVIDERS: Emergency Medicine; Hospitalist; Internal Medicine; ADMIT Internal Medicine
DX: G89.18 Other acute postprocedural pain (principal); R10.2 Pelvic and perineal pain; N17.0 Acute kidney failure with tubular necrosis; E86.0 Dehydration; D64.9 Anemia, unspecified; C61 Malignant neoplasm of prostate; K56.7 Ileus, unspecified; N99.840 Postprocedural hematoma of a genitourinary system organ or structure following a genitourinary system procedure; E03.9 Hypothyroidism, unspecified; E06.3 Autoimmune thyroiditis; I12.9 Hypertensive chronic kidney disease with stage 1 through stage 4 chronic kidney disease, or unspecified chronic kidney disease; N18.30 Chronic kidney disease, stage 3 unspecified; Z88.6 Allergy status to analgesic agent; Z88.5 Allergy status to narcotic agent; Z79.890 Hormone replacement therapy; Z79.899 Other long term (current) drug therapy
CPT/HCPCS: 36415; 51702; 51798; 74177; 76770; 80048; 80053; 80069; 81001; 82550; 82570; 83540; 83550; 83605; 83690; 84300; 85025; 87040; 87086; 94760; 94762; 96361; 96374; 96375; 96376; 99285-25; A9270; G0378; J0360; J0696; J1170; J1750; J1885; J2270; J2405; J3010; J3370; J7030; J7050; J7120; Q9967

== ENCOUNTER → 2024-09-29 | Outpatient (CLI) | payer OTHER ==
[~2024-09-29] MED LIST changes: +AMLO5 PO; +ASPI81CH PO; +ATOR40TA PO; +DULOXETINE HCL60 M1 PO; +HYDMOR2 PO; +HYDMOR4 PO; +LOSA50 PO; +LOSARTAN POTASS25 M2 PO; +OXYC5 PO; +QUETIAPINE FUMA50 M2 PO; +SENNA LAXATIVE8.6 MG PO; +TAMSULOSIN HCL0.4 M1 PO
[2024-09-29 11:32] LABS: Stool Occult Bld Immuno 1 Positive (NEGATIVE)
== END ==
LOC: LAB 06:00 → LAB SHORT 06:00
PROVIDERS: Nurse Practitioner
DX: C61 Malignant neoplasm of prostate (principal); D64.9 Anemia, unspecified
CPT/HCPCS: 82274

== ENCOUNTER 2024-10-13 14:36 | Emergency (ER) | payer OTHER ==
[~2024-10-13] VITALS: Ht 180.3 cm; Wt 78.0 kg
[2024-10-13 15:19] LABS: BASOPHILS ABSOLUTE AUTO 0.04 K/mm3 (0.00-0.23); BASOPHILS PERCENT AUTO 1 % (0-2); EOSINOPHILS ABSOLUTE AUTO 0.08 K/mm3 (0.00-0.68); EOSINOPHILS PERCENT AUTO 2 % (0-6); Hematocrit 41.4 % (37.0-53.0); Hemoglobin 14.2 g/dL (13.5-17.5); IMMATURE GRAN ABSOLUTE AUTO 0.01 K/mm3 (0.00-0.10); IMMATURE GRAN PERCENT AUTO 0 % (0-1); LYMPHOCYTES ABSOLUTE AUTO 0.85 K/mm3 (0.84-5.20); LYMPHOCYTES PERCENT AUTO 16 % (21-46); MONOCYTES ABSOLUTE AUTO 0.62 K/mm3 (0.16-1.47); MONOCYTES PERCENT AUTO 12 % (4-13); Mean Corpuscular HGB 31.5 pg (26.0-34.0); Mean Corpuscular HGB Conc 34.3 g/dL (31.5-36.5); Mean Corpuscular Volume 92 fL (80-100); Mean Platelet Volume 9.4 fL (9.1-12.4); NEUTROPHILS ABSOLUTE AUTO 3.77 K/mm3 (1.96-9.15); NEUTROPHILS PERCENT AUTO 70 % (41-73); Platelet Count 321 K/mm3 (150-400); RDW Coefficient Variation 14.5 % (11.7-14.2); RDW Standard Deviation 48.5 fL (35.1-46.3); Red Blood Cell Count 4.51 M/mm3 (4.30-5.90); White Blood Cell Count 5.37 K/mm3 (4.00-11.30)
[2024-10-13 15:59] LABS: Albumin, Blood 3.9 g/dL (3.4-5.0); Albumin/Globulin Ratio 1.2 (0.8-1.8); Bilirubin, Total 0.5 mg/dL (0.1-1.0); Bun/Creatinine Ratio 27.2 (12.0-20.0); Calcium, Blood 8.9 mg/dL (8.5-10.1); Creatinine, Blood 0.92 mg/dL (0.60-1.20); Globulin, Blood 3.3 g/dL (2.2-4.0); Total Protein, Blood 7.2 g/dL (6.4-8.2)
[2024-10-13] MEDS ORDERED: Ondansetron HCl 2 MG / ML 2ML Vial IV ONE (17:50)
[2024-10-13] MEDS ORDERED: Morphine Sulfate 4 MG/1 ML Injection IV ONE (17:50)
[2024-10-13 19:30] VITALS: BP 136/108
== END 2024-10-13 19:36 | disposition home or self-care (01) ==
LOC: ER 14:36
PROVIDERS: Student in an Organized Health Care Education/Training Program
DX: R07.89 Other chest pain (principal); I10 Essential (primary) hypertension; E03.9 Hypothyroidism, unspecified; G20.A1 Parkinson's disease without dyskinesia, without mention of fluctuations; Z88.5 Allergy status to narcotic agent; Z79.890 Hormone replacement therapy; Z79.82 Long term (current) use of aspirin; Z79.899 Other long term (current) drug therapy
CPT/HCPCS: 70450; 71045; 71260; 74177; 80053; 84484; 85025; 85379; 93005; 93010; 96374-59; 96375; 99285-25; J2270; J2405; Q9967

== ENCOUNTER 2025-06-03 16:02 | Emergency (ER) | payer OTHER ==
[~2025-06-03] VITALS: Ht 180.3 cm; Wt 79.4 kg
[2025-06-03] MEDS ORDERED: Lidocaine 2% Jelly Uro-Jet UR ONE (16:25)
[2025-06-03] MEDS ORDERED: FentaNYL Citrate 50 MCG/ML 2 ML Injection IV ONE (16:45)
[2025-06-03 17:02] LABS: Source, Urine Clean Catch
[2025-06-03 17:07] LABS: BASOPHILS ABSOLUTE AUTO 0.04 K/mm3 (0.00-0.23); BASOPHILS PERCENT AUTO 1 % (0-2); EOSINOPHILS ABSOLUTE AUTO 0.05 K/mm3 (0.00-0.68); EOSINOPHILS PERCENT AUTO 1 % (0-6); Hematocrit 45.2 % (37.0-53.0); Hemoglobin 15.7 g/dL (13.5-17.5); IMMATURE GRAN ABSOLUTE AUTO 0.02 K/mm3 (0.00-0.10); IMMATURE GRAN PERCENT AUTO 0 % (0-1); LYMPHOCYTES ABSOLUTE AUTO 0.96 K/mm3 (0.84-5.20); LYMPHOCYTES PERCENT AUTO 16 % (21-46); MONOCYTES ABSOLUTE AUTO 0.58 K/mm3 (0.16-1.47); MONOCYTES PERCENT AUTO 10 % (4-13); Mean Corpuscular HGB Conc 34.7 g/dL (31.5-36.5); Mean Corpuscular Volume 89 fL (80-100); NEUTROPHILS ABSOLUTE AUTO 4.25 K/mm3 (1.96-9.15); NEUTROPHILS PERCENT AUTO 72 % (41-73); NRBC ABSOLUTE 0.00 K/mm3 (0.00-0.02); NRBC Auto 0.0 /100 WBC (0.0-0.2); Platelet Count 378 K/mm3 (150-400); RDW Coefficient Variation 13.9 % (11.7-14.2); RDW Standard Deviation 45.2 fL (35.1-46.3)
[2025-06-03 17:09] LABS: Bilirubin, Urine Neg (Neg); Color, Urine Yellow (P-Yellow); Glucose Qualitative, Urine Neg (Neg); Ketones, Urine 4+ (Neg); Leukocyte Esterase, Urine 2+ (Neg); Protein, Urine 4+ (Neg); Specific Gravity, Urine 1.015 (1.003-1.022); Urobilinogen, Urine NORM (Normal)
[2025-06-03 17:18] LABS: Red Blood Cells, Urine TNTC /hpf (0-2)
[2025-06-03 17:43] LABS: Alanine Aminotransfer (ALT/SGP 42.0 U/L (12-78); Albumin, Blood 4.2 g/dL (3.4-5.0); Albumin/Globulin Ratio 1.1 (0.8-1.8); Anion Gap 15.0 mmol/L (3-11); Aspartate Aminotrans (AST/SGOT 27.0 U/L (12-37); Bilirubin, Total 1.0 mg/dL (0.1-1.0); Blood Urea Nitrogen 22.0 mg/dL (8-24); CO2, Blood 18.0 mmol/L (21-32); Calcium, Blood 9.9 mg/dL (8.5-10.1); Chloride, Blood 107.0 mmol/L (98-108); Creatinine, Blood 0.86 mg/dL (0.60-1.20); Globulin, Blood 3.7 g/dL (2.2-4.0); Glucose, Blood 111.0 mg/dL (70-99); Potassium, Blood 4.1 mmol/L (3.5-5.5); Sodium, Blood 136.0 mmol/L (136-145); Total Protein, Blood 7.9 g/dL (6.4-8.2)
[2025-06-03] MEDS ORDERED: NS 1,000 ML IV SCH (17:45)
[2025-06-03] MEDS ORDERED: CefTRIAXone Sodium 2,000 MG in NS 100 ML IV ONE (19:10)
[2025-06-03] MEDS ORDERED: FentaNYL Citrate 50 MCG/ML 2 ML Injection IV PRN (19:35)
[2025-06-03] MEDS ORDERED: RX Prepack 2 Tabs Ondansetron ODT 4MG UD ONE (20:00)
[2025-06-03] MEDS ORDERED: RX Prepack 6 Tabs Oxycodone 5mg UD ONE (20:00)
[2025-06-03 20:30] VITALS: BP 139/87
[2025-06-03] MEDS ORDERED: ONDA4ODT MM (20:35)
[2025-06-03] MEDS ORDERED: CEFP200 PO (20:35)
[2025-06-03] MEDS ORDERED: OXAYDO5 M1 PO (20:35)
[2025-06-03] MEDS ORDERED: TAMS.4ER PO (20:36)
[2025-06-04] MEDS ORDERED: CEFP200 PO (09:27)
== END 2025-06-03 20:50 | disposition home or self-care (01) ==
LOC: ER 16:02
PROVIDERS: Student in an Organized Health Care Education/Training Program
DX: K57.30 Diverticulosis of large intestine without perforation or abscess without bleeding (principal); N39.0 Urinary tract infection, site not specified; F17.200 Nicotine dependence, unspecified, uncomplicated; Z88.5 Allergy status to narcotic agent; Z79.82 Long term (current) use of aspirin; Z79.899 Other long term (current) drug therapy
CPT/HCPCS: 51702; 74177; 80053; 81001; 85025; 87077; 87086; 87186; 96374-59; 96375-59; 96376-59; 99284-25; A9270; J0696; J3010; J7030; Q9967